=== PATIENT | male | born 1995 | race Caucasian/White ===

== ENCOUNTER 2020-11-24 11:27 | Emergency (ER) | payer BC ==
[2020-11-24] MEDS ORDERED: Take Home: Amoxicillin/Clavulanate K 875-125 MG Tab, 2 Tab Pack PO ONE (11:44)
[2020-11-24] MEDS ORDERED: Diphtheria,Pertussis(Acell),Tetanus Vaccine 0.5 ML Syringe IM ONE (11:44)
[2020-11-24] MEDS ORDERED: Amoxicillin/Clavulanate K 875-125 MG Tab ONE ×2 (11:48→11:49)
--- NOTE | 2020-11-24 12:00 | EDM.PDOC ---
ED HPI GENERAL MEDICAL PROBLEM - General Stated Complaint: DOG BITE Time Seen by Provider: 11/24/20 12:00 Source of Information: Reports: Patient History Limitations: Reports: No Limitations - History of Present Illness INITIAL COMMENTS - FREE TEXT/NARRATIVE: Pt. presents to ER with complaints of dog bite to bottom of L foot. Pt. states that the dog's rabies is up to date. Pt. tetanus is not for the patient. Pt. states that it was his dog that bit him. He states that he was attempting to break up a fight between his own 2 dogs. Onset: Today Onset Date: 11/24/20 Location: Reports: Lower Extremity, Left Severity: Mild - Related Data Allergies Allergy/AdvReac Type Severity Reaction Status Date / Time No Known Allergies Allergy Verified 11/24/20 11:44 ED ROS GENERAL - Review of Systems Review Of Systems: Comprehensive ROS is negative, except as noted in HPI. ED EXAM, GENERAL - Physical Exam Exam: See Below Exam Limited By: No Limitations General Appearance: Alert, WD/WN, No Apparent Distress Extremities: Other (approx. 2 cm laceration with adjacent puncture wound to bottom of L foot. Both are quite superficial. Not actively bleeding. CMS intact.) Course - Orders/Labs/Meds Orders: Active Orders 24 hr Category Date Time Status Vaccines to be Administered [RC] PER UNIT ROUTINE Care 11/24/20 11:44 Active Meds: Medications Discontinued Medications Generic Name Dose Route Start Last Admin Trade Name Peyton PRN Reason Stop Dose Admin Amoxicillin/Clavulanate Potassium 2 packet 11/24/20 11:44 11/24/20 11:54 Take Home: Amoxicillin/Clavulanate K 875-125 Mg Tab, 2 Tab Pack PO 11/24/20 11:45 Not Given ONETIME ONE Amoxicillin/Clavulanate Potassium Confirm 11/24/20 11:48 11/24/20 11:53 Amoxicillin/Clavulanate K 875-125 Mg Tab Administered 11/24/20 11:49 Not Given Dose 2 tab .ROUTE .STK-MED ONE Amoxicillin/Clavulanate Potassium Confirm 11/24/20 11:49 11/24/20 11:54 Amoxicillin/Clavulanate K 875-125 Mg Tab Administered 11/24/20 11:50 Not Given Dose 2 tab .ROUTE .STK-MED ONE Diphtheria/Tetanus/Acell Pertussis 0.5 ml 11/24/20 11:44 11/24/20 11:52 Diphtheria,Pertussis(Acell),Tetanus Vaccine 0.5 Ml Syringe IM 11/24/20 11:45 0.5 ml .ONCE ONE Administration Departure - Departure Time of Disposition: 12:15 Disposition: Home, Self-Care 01 Clinical Impression: Dog bite - Discharge Information Instructions: Amoxicillin; Clavulanic Acid Tablets Additional Instructions: Augmentin 875mg 1 tab daily for 7 days Keep dry for 25 hours Cover if you anticipate the area getting dirty, otherwise keep open to air as much as possible. Return if you notice redness, swelling, or discharge from the area. - My Orders Last 24 Hours: My Active Orders 11/24/20 11:44 Vaccines to be Administered [RC] PER UNIT ROUTINE - Assessment/Plan Last 24 Hours: My Active Orders 11/24/20 11:44 Vaccines to be Administered [RC] PER UNIT ROUTINE Plan: Augmentin 875mg 1 tab daily for 7 days Keep dry for 25 hours Cover if you anticipate the area getting dirty, otherwise keep open to air as much as possible. Return if you notice redness, swelling, or discharge from the area.
== END 2020-11-24 12:00 | disposition home or self-care (01) ==
LOC: VM.ED 11:27
DX: S90.872A Other superficial bite of left foot, initial encounter (principal); Z23 Encounter for immunization; W54.0XXA Bitten by dog, initial encounter
CPT/HCPCS: 90471; 90715; 99283